=== PATIENT | female | born 1980 | race Two or more races ===

== ENCOUNTER → 2023-01-12 | Day surgery (SDC) | payer OTHER | END | disposition home or self-care (01) | LOC: ADM 01-10 13:30 → AMB-ENDOS 07:47 → CIR.AMB 13:30 | PROVIDERS: ATTEND Colon & Rectal Surgery | DX: D12.8 Benign neoplasm of rectum (principal); D12.3 Benign neoplasm of transverse colon; K62.5 Hemorrhage of anus and rectum; Z20.822 Contact with and (suspected) exposure to COVID-19 ==